=== PATIENT | male | born 1990 ===

== ENCOUNTER 2016-07-16 08:50 | Emergency (ER) | payer MEDICAID ==
[2016-07-16 08:53] VITALS: BP 134/90; TEMP 98.3; O2SAT 98
--- NOTE | 2016-07-16 10:24 | ED PDOC ---
HPI: General Adult Time Seen by Provider: 07/16/16 09:00 Chief Complaint (Nursing): Medical Clearance Chief Complaint (Provider): Medical Clearance History Per: Patient History/Exam Limitations: no limitations Onset/Duration Of Symptoms: Days Current Symptoms Are (Timing): Still Present Severity: Mild Additional Complaint(s): Patient is a 26 year old male brought to ED by [place] Police (under custody) for diffuse body pain. Patient reports a several day history of body pain with fever. Denies injury. no vomiting diarrhea Past Medical History Reviewed: Historical Data Vital Signs: Last Vital Signs Temp 98.3 F 07/16/16 08:52 Pulse 60 07/16/16 11:42 Resp BP 134/90 07/16/16 08:52 Pulse Ox 98 07/16/16 11:42 - Medical History PMH: Personality Disorder - Surgical History Surgical History: No Surg Hx - Family History Family History: States: No Known Family Hx - Living Arrangements Living Arrangements: Other (non domiciled) - Social History Current smoker - smoking cessation education provided: Yes Alcohol: < 2 Drinks/Day Drugs: Opiates - Home Medications Home Medications: Ambulatory Orders Medication Instructions Recorded DiphenhydrAMINE [Benadryl] 50 mg PO Q6 PRN #30 cap 04/08/16 Epinephrine HCl [Epipen 0.3 mg IM ONCE PRN #0.3 ml 04/08/16 Auto-Injector] Famotidine [Pepcid] 40 mg PO DAILY #7 tab 04/08/16 Prednisone 50 mg PO DAILY #2 tablet 04/08/16 - Allergies Allergies/Adverse Reactions: Allergies Allergy/AdvReac Type Severity Reaction Status Date / Time nut - unspecified Allergy ANAPHYLAXIS Verified 04/08/16 15:43 Review of Systems ROS Statement: Except As Marked, All Systems Reviewed And Found Negative Constitutional: Positive for: Fever, Chills Cardiovascular: Negative for: Chest Pain Respiratory: Negative for: Shortness of Breath Gastrointestinal: Negative for: Nausea, Abdominal Pain Musculoskeletal: Positive for: Other (diffuse bady pain ) Skin: Negative for: Rash Physical Exam - Reviewed Nursing Documentation Reviewed: Yes Vital Signs Reviewed: Yes - Physical Exam Appears: Positive for: Non-toxic, No Acute Distress Skin: Positive for: Normal Color, Warm Eye Exam: Positive for: Normal appearance Neck: Positive for: Normal, Painless ROM Cardiovascular/Chest: Positive for: Regular Rate, Rhythm. Negative for: Murmur Respiratory: Positive for: Normal Breath Sounds. Negative for: Respiratory Distress Gastrointestinal/Abdominal: Positive for: Normal Exam. Negative for: Tenderness Extremity: Positive for: Normal ROM Neurologic/Psych: Positive for: Alert, Oriented - ECG ECG: Positive for: Interpreted By Me ECG Rhythm: Positive for: Normal QRS, Sinus Rhythm. Negative for: ST/T Changes Rate: 60 O2 Sat by Pulse Oximetry: 98 (RA) Pulse Ox Interpretation: Normal Medical Decision Making Medical Decision Making: Time: 944 Initial impression: Medical clearance Initial plan: -- Influenza -- Troponin tylenol given for pain with imrpovement Time: 1139 Troponin negative, influenza negative pt seen by home mission worker Dr. Mcwilliams cleared psychiatrically. Discharged into police custody with diagnosis body aches Scribe Attestation: Documented by Neli Rivero acting as a scribe for Junior Peterson MD. Scribe Attestation: All medical record entries made by the Scribe were at my direction and personally dictated by me. I have reviewed the chart and agree that the record accurately reflects my personal performance of the history, physical exam, medical decision making, and the department course for this patient. I have also personally directed, reviewed, and agree with the discharge instructions and disposition. Disposition - Clinical Impression Clinical Impression: Body aches - Patient ED Disposition Is Patient to be Admitted: No Counseled Patient/Family Regarding: Studies Performed, Diagnosis, Need For Followup - Disposition Referrals: [facility] [Outside] [facility] [Outside] Disposition: Routine/Home Disposition Time: 11:00 Condition: IMPROVED Additional Instructions: you are medically and psychiatrically cleared for police custody follow up with your primary doctor in 1-2 days return to the ED with any worsening or concerning symptoms Instructions: Musculoskeletal Pain (ED)
[2016-07-16 11:42] VITALS: PULSE 60
== END 2016-07-16 11:59 | disposition home or self-care (01) ==
LOC: H.ER 08:50
DX: M79.1 Myalgia (principal); F17.200 Nicotine dependence, unspecified, uncomplicated

== ENCOUNTER 2017-03-05 21:21 | Emergency (ER) | payer SELFPAY ==
[2017-03-05 21:36] VITALS: BMI 22.3
[2017-03-05] MEDS ORDERED: Sodium Chloride 0.9% 1,000 ML IV STA (21:43)
[2017-03-05 21:48] VITALS: TEMP 98.3
--- NOTE | 2017-03-05 22:23 | ED PDOC ---
HPI: Psych/Substance Abuse Time Seen by Provider: 03/05/17 21:30 Chief Complaint (Nursing): Substance Abuse Chief Complaint (Provider): Heroin overdose ED Caveat: Acuity of Condition History Per: Patient, EMS History/Exam Limitations: no limitations Onset/Duration Of Symptoms: Mins Additional Complaint(s): Patient is a 27 y/o male brought to the emergency department by a friend who reports that patient is unresponsive after heroin use. Patient was also found with a needle in his arm. Upon arrival to the ED, patient was noted to have severe respiratory depression bordering on apnea. Pupils were pinpoint-- consistent with acute opiate overdose. History and ROS limited due to patient's clinical condition. Please see MDM notes for treatment steps taken. PCP: none provided. Past Medical History Reviewed: Historical Data, Nursing Documentation, Vital Signs Vital Signs: Last Vital Signs Temp 98.3 F 03/05/17 21:36 Pulse 120 H 03/05/17 21:36 Resp 18 03/05/17 21:36 BP 135/81 03/05/17 21:36 Pulse Ox 99 03/05/17 21:36 - Medical History PMH: Personality Disorder Denies: Diabetes, Hepatitis, HIV, HTN, Seizures, Sexually Transmitted Disease - Surgical History Surgical History: No Surg Hx - Family History Family History: States: Unknown Family Hx - Social History Drugs: Opiates - Home Medications Home Medications: Ambulatory Orders Medication Instructions Recorded DiphenhydrAMINE [Benadryl] 50 mg PO Q6 PRN #30 cap 04/08/16 Epinephrine HCl [Epipen 0.3 mg IM ONCE PRN #0.3 ml 04/08/16 Auto-Injector] Famotidine [Pepcid] 40 mg PO DAILY #7 tab 04/08/16 Prednisone 50 mg PO DAILY #2 tablet 04/08/16 - Allergies Allergies/Adverse Reactions: Allergies Allergy/AdvReac Type Severity Reaction Status Date / Time nut - unspecified Allergy ANAPHYLAXIS Verified 03/05/17 21:36 Review of Systems Review Of Systems: ROS cannot be obtained secondary to pt's inabilty to answer questions. (due to patient's clinical condition) Physical Exam - Reviewed Nursing Documentation Reviewed: Yes Vital Signs Reviewed: Yes - Physical Exam Appears: Positive for: Non-toxic, No Acute Distress Head Exam: Positive for: ATRAUMATIC, NORMAL INSPECTION, NORMOCEPHALIC Skin: Positive for: Normal Color, Warm, Dry Eye Exam: Positive for: Normal appearance (intially, pinpoint pupils noted) Neck: Positive for: Normal, Supple Cardiovascular/Chest: Positive for: Regular Rate, Rhythm. Negative for: Murmur Respiratory: Positive for: Normal Breath Sounds (initially, only during positive pressure ventilation via BVM). Negative for: Accessory Muscle Use, Respiratory Distress Extremity: Positive for: Normal ROM, Other (Active track cruz on left antecubital region). Negative for: Pedal Edema Neurologic/Psych: Positive for: Alert, Oriented (x3) - Laboratory Results Result Diagrams: 03/05/17 22:11 03/05/17 22:11 - ECG O2 Sat by Pulse Oximetry: 99 (RA) Pulse Ox Interpretation: Normal - Critical Care Total Time (In Min): 30 Medical Decision Making Medical Decision Making: Time: 21:43 Initial impression: Patient is 27 y/o male presenting with signs of an acute opiate overdose. Initial plan: EKG Acetaminophen Alcohol serum CMP Urine Drug Screening Salicylate ED Urine Dipstick CBC Normal Saline 1 L IV Heplock insertion Accucheck Reevaluation 21:24 ED treatment initiated. Patient put on stretcher. Pinpoint pupils noted. 21:25 Positive pressure ventilation via BVM initiated. 21:26 0.8 Narcan administered. Patient is responsive. 21:27 Accucheck reading is 140. Patient is now lucid and alert. Admits to heroin use and denies use of other substances. Vital signs are stable. 02:10 Labs reviewed and revealed no clinically significant abnormalities, with exception of 19,000 WBC count. No indication of active infections process. Patient is a-febrile without cough or any other medical complaints. Medical pain related to stress induced leukemoid reaction. Diagnosis: Heroin Overdose Scribe Attestation: Documented by Kimberli Cook, acting as a scribe for Jamal Reyes MD. Provider Scribe Attestation: All medical record entries made by the Scribe were at my direction and personally dictated by me. I have reviewed the chart and agree that the record accurately reflects my personal performance of the history, physical exam, medical decision making, and the department course for this patient. I have also personally directed, reviewed, and agree with the discharge instructions and disposition. Disposition - Clinical Impression Clinical Impression: Heroin overdose - Patient ED Disposition Is Patient to be Admitted: No - Disposition Disposition: Routine/Home Disposition Time: 02:10 Condition: IMPROVED Instructions: Narcotic Abuse (ED), Adult Overdose (ED) Forms: [employer] (Nicaraguan)
[2017-03-05 22:27] LABS: BASO # 0.1 K/uL (0.0-0.2); BASO % 0.4 % (0.0-2.0); EOS # 0.3 K/uL (0.0-0.7); EOS % 1.6 % (0.0-4.0); HEMOGLOBIN 15.1 g/dL (12.0-18.0); LYMPH # 7.4 K/uL (1.0-4.3); LYMPH % 38.4 % (20.0-40.0); MEAN CELL VOLUME 89.1 fl (80.0-94.0); MEAN CORPUSCULAR HEMOGLOBIN 29.8 pg (27.0-31.0); MEAN CORPUSCULAR HGB CONC 33.4 g/dL (33.0-37.0); MEAN PLATELET VOLUME 8.8 fl (7.2-11.7); MONO # 1.3 K/uL (0.0-0.8); MONO % 6.6 % (0.0-10.0); NEUT # 10.2 K/uL (1.8-7.0); NRBC % 0.2 % (0.0-0.0); RBC 5.09 Mil/uL (4.40-5.90); RED CELL DISTRIBUTION WIDTH 13.8 % (11.5-14.5); WHITE BLOOD COUNT 19.3 K/uL (4.8-10.8)
[2017-03-05 22:29] LABS: ALB/GLOB RATIO 1.4 (1.0-2.1); ALBUMIN 4.4 g/dL (3.5-5.0); ALT/SGPT 37 U/L (21-72); AST/SGOT 31 U/L (17-59); BLOOD UREA NITROGEN 11 mg/dl (9-20); CALCIUM 9.4 mg/dL (8.4-10.2); GFR AFRICAN-AMERICAN > 60; GFR NON-AFRICAN AMERICAN > 60
[2017-03-05 22:31] LABS: ACETAMINOPHEN < 10.0 ug/ml (10.0-30.0); SALICYLATE < 1.0 mg/dl
[2017-03-05 22:50] VITALS: RESP 16
[2017-03-05] MEDS ORDERED: Naloxone 0.4 mg/ml Inj (Adult) IVP ONE (22:56)
[2017-03-06 02:18] VITALS: O2SAT 99
[2017-03-06 03:58] VITALS: BP 102/62; PULSE 95
--- NOTE | 2017-03-06 11:05 | CARD ---
APPROVED REPORT EKG Measurement Heart [id number] <Conclusion> Sinus tachycardia Possible Left atrial enlargement Borderline ECG
== END 2017-03-06 03:58 | disposition home or self-care (01) ==
LOC: H.ER 21:21
DX: T40.1X1A Poisoning by heroin, accidental (unintentional), initial encounter (principal); D72.823 Leukemoid reaction
CPT/HCPCS: 80053; 85025; 93005; 96361; 96374; 99283; G0480; J2310; J7040

== ENCOUNTER 2017-04-04 14:32 | Emergency (ER) | payer MEDICAID ==
[2017-04-04 15:07] VITALS: BP 120/87; RESP 16; TEMP 98; O2SAT 99; BMI 22.6
--- NOTE | 2017-04-04 15:59 | ED PDOC ---
HPI: General Adult Time Seen by Provider: 04/04/17 15:13 Chief Complaint (Nursing): Headache Chief Complaint (Provider): Numbness to the head region History Per: Patient History/Exam Limitations: no limitations Current Symptoms Are (Timing): Still Present Additional Complaint(s): 27 year old male presents to the emergency department with a complaint of a numbness to the left side of the head that started after he woke up around 9am from sleeping this morning. Reports he had similar symptoms over the summer which lasted approximately 2 weeks and resolved spontaneously. He did not seek any medical attention at that time. Denies peripheral weakness, headache contrary to triage note, fever, or trauma. Past Medical History Reviewed: Historical Data, Nursing Documentation, Vital Signs Vital Signs: Last Vital Signs Temp 98.0 F 04/04/17 15:06 Pulse 65 04/04/17 17:21 Resp 16 04/04/17 15:06 BP 120/87 04/04/17 15:06 Pulse Ox 99 04/04/17 17:21 - Medical History PMH: Personality Disorder Denies: Diabetes, Hepatitis, HIV, HTN, Seizures, Sexually Transmitted Disease - Family History Family History: States: Unknown Family Hx - Social History Current smoker - smoking cessation education provided: Yes (Heavy Smoker > 10 Cigarettes Daily) Alcohol: Social Drugs: Other (Heroin) - Home Medications Home Medications: Ambulatory Orders Medication Instructions Recorded DiphenhydrAMINE [Benadryl] 50 mg PO Q6 PRN #30 cap 04/08/16 Epinephrine HCl [Epipen 0.3 mg IM ONCE PRN #0.3 ml 04/08/16 Auto-Injector] Famotidine [Pepcid] 40 mg PO DAILY #7 tab 04/08/16 Prednisone 50 mg PO DAILY #2 tablet 04/08/16 - Allergies Allergies/Adverse Reactions: Allergies Allergy/AdvReac Type Severity Reaction Status Date / Time nut - unspecified Allergy ANAPHYLAXIS Verified 04/04/17 15:05 Review of Systems ROS Statement: Except As Marked, All Systems Reviewed And Found Negative (As per HPI, otherwise negative) Constitutional: Negative for: Fever, Other (Trauma) Neurological: Positive for: Numbness (To the left side of the head). Negative for: Weakness (peripheral weakness), Headache (Contrary to triage note) Physical Exam - Reviewed Nursing Documentation Reviewed: Yes Vital Signs Reviewed: Yes - Physical Exam Appears: Positive for: No Acute Distress Head Exam: Positive for: ATRAUMATIC, NORMAL INSPECTION, NORMOCEPHALIC Skin: Positive for: Normal Color, Warm, Dry Cardiovascular/Chest: Positive for: Regular Rate, Rhythm. Negative for: Murmur Respiratory: Positive for: Normal Breath Sounds. Negative for: Accessory Muscle Use, Respiratory Distress Gastrointestinal/Abdominal: Positive for: Normal Exam, Soft. Negative for: Tenderness Back: Positive for: Normal Inspection. Negative for: L CVA Tenderness, R CVA Tenderness Extremity: Positive for: Normal ROM. Negative for: Tenderness, Pedal Edema Neurologic/Psych: Positive for: Alert, deputy k 9 II-XII (Intact), Oriented (x3), Cerebellar Tests (Normal), Gait (Stead and unassisted), Other (Equal log roper strength bilaterally). Negative for: Facial Droop (aphasia) - Laboratory Results Result Diagrams: 04/04/17 15:57 04/04/17 15:57 - ECG ECG: Positive for: Interpreted By Ma ECG Rhythm: Positive for: Sinus Rhythm. Negative for: ST/T Changes Rate: 65 O2 Sat by Pulse Oximetry: 99 (RA) Pulse Ox Interpretation: Normal - Progress ED Course And Treament: Case d/w Dr. Armstrong who recommends labs and CT head w/o contrast and if all are negative pt. can f/u with neurologist outpt. Labs ordered. CT head w/o contrast ordered. CT head w/o contrast: negative. Pt. instructed to f/u with Dr. Lemus, neurologist, for further evaluation. Medical Decision Making Medical Decision Making: Time: 153 Initial impression: Numbness Initial plan: --EKG --CMP --Drug Screen, Urine --CBC w/ diff --Head CT --Reevaluation Time: 163 --head CT FINDINGS: HEMORRHAGE: No intracranial hemorrhage. BRAIN: No mass effect or edema. No atrophy or chronic microvascular ischemic changes. VENTRICLES: Unremarkable. No hydrocephalus. CALVARIUM: Unremarkable. PARANASAL SINUSES: Unremarkable as visualized. No significant inflammatory changes. MASTOID AIR CELLS: Unremarkable as visualized. No inflammatory changes. OTHER FINDINGS: None. IMPRESSION: No acute intracranial pathology. Time: 1716 --Patient is medically stable for discharge and advised to follow up with Dr. Minh Lemus MD. Clinical Impression: Paresthesias Scribe Attestation: Documented by Kristie Dager, acting as a scribe for Zenon Brewster PA-C Provider Scribe Attestation: All medical record entries made by the Scribe were at my direction and personally dictated by me. I have reviewed the chart and agree that the record accurately reflects my personal performance of the history, physical exam, medical decision making, and the department course for this patient. I have also personally directed, reviewed, and agree with the discharge instructions and disposition. Disposition - Clinical Impression Clinical Impression: Paresthesias - Patient ED Disposition Is Patient to be Admitted: No - Disposition Referrals: Minh Lemus MD [Medical Doctor] - [facility] [Outside] [facility] [Outside] Disposition: Routine/Home Disposition Time: 17:17 Condition: STABLE Additional Instructions: Follow up with Dr. Lemus, neurologist, for further evaluation. Instructions: Paresthesia (ED) Forms: [facility] (Mohawk) Print Language: KINYARWANDA
--- NOTE | 2017-04-04 16:40 | CT ---
PROCEDURE: CT HEAD WITHOUT CONTRAST. HISTORY: numbness to the L side of head COMPARISON: None available. TECHNIQUE: Axial computed tomography images were obtained through the head/brain without intravenous contrast. Radiation dose: Total exam DLP = 1332.2 mGy-cm. This CT exam was performed using one or more of the following dose reduction techniques: Automated exposure control, adjustment of the mA and/or kV according to patient size, and/or use of iterative reconstruction technique. FINDINGS: HEMORRHAGE: No intracranial hemorrhage. BRAIN: No mass effect or edema. No atrophy or chronic microvascular ischemic changes. VENTRICLES: Unremarkable. No hydrocephalus. CALVARIUM: Unremarkable. PARANASAL SINUSES: Unremarkable as visualized. No significant inflammatory changes. MASTOID AIR CELLS: Unremarkable as visualized. No inflammatory changes. OTHER FINDINGS: None. IMPRESSION: No acute intracranial pathology.
[2017-04-04 16:45] VITALS: PULSE 65
[2017-04-04 16:50] LABS: ALB/GLOB RATIO 1.4 (1.0-2.1); ALBUMIN 4.6 g/dL (3.5-5.0); ALT/SGPT 29 U/L (21-72); AST/SGOT 30 U/L (17-59); BLOOD UREA NITROGEN 14 mg/dl (9-20); GFR AFRICAN-AMERICAN > 60; GFR NON-AFRICAN AMERICAN > 60
[2017-04-04 17:00] LABS: BASO % 0.5 % (0.0-2.0); EOS # 0.3 K/uL (0.0-0.7); EOS % 4.9 % (0.0-4.0); HEMOGLOBIN 15.3 g/dL (12.0-18.0); LYMPH # 2.3 K/uL (1.0-4.3); LYMPH % 33.9 % (20.0-40.0); MEAN CELL VOLUME 88.3 fl (80.0-94.0); MEAN CORPUSCULAR HEMOGLOBIN 29.5 pg (27.0-31.0); MEAN CORPUSCULAR HGB CONC 33.4 g/dL (33.0-37.0); MEAN PLATELET VOLUME 9.1 fl (7.2-11.7); MONO # 0.6 K/uL (0.0-0.8); MONO % 9.2 % (0.0-10.0); NEUT # 3.6 K/uL (1.8-7.0); NEUT % 51.5 % (50.0-75.0); NRBC % 0.1 % (0.0-0.0); RBC 5.2 Mil/uL (4.40-5.90); WHITE BLOOD COUNT 6.9 K/uL (4.8-10.8)
--- NOTE | 2017-04-05 11:20 | CARD ---
APPROVED REPORT EKG Measurement Heart [id number] <Conclusion> Normal sinus rhythm Possible Left atrial enlargement Borderline ECG
== END 2017-04-04 17:39 | disposition home or self-care (01) ==
LOC: H.ER 14:32
DX: R20.2 Paresthesia of skin (principal)

== ENCOUNTER 2017-05-15 15:26 | Inpatient (IN) | payer MEDICAID, OTHER ==
[2017-05-15 15:26] VITALS: BMI 22.6
[2017-05-15 15:58] VITALS: O2SAT 96
[2017-05-15 17:07] LABS: BASO # 0.1 K/uL (0.0-0.2); BASO % 0.7 % (0.0-2.0); EOS # 0.2 K/uL (0.0-0.7); EOS % 2.5 % (0.0-4.0); HEMOGLOBIN 14.1 g/dL (12.0-18.0); LYMPH # 2.2 K/uL (1.0-4.3); MEAN CELL VOLUME 88.1 fl (80.0-94.0); MEAN CORPUSCULAR HEMOGLOBIN 30.1 pg (27.0-31.0); MEAN CORPUSCULAR HGB CONC 34.2 g/dL (33.0-37.0); MEAN PLATELET VOLUME 8.4 fl (7.2-11.7); MONO # 0.5 K/uL (0.0-0.8); MONO % 6.5 % (0.0-10.0); NEUT # 5.2 K/uL (1.8-7.0); NEUT % 63.3 % (50.0-75.0); RBC 4.68 Mil/uL (4.40-5.90); RED CELL DISTRIBUTION WIDTH 12.7 % (11.5-14.5); WHITE BLOOD COUNT 8.2 K/uL (4.8-10.8)
[2017-05-15 17:10] LABS: URINE BACTERIA RARE (<OCC); URINE BILIRUBIN NEGATIVE (NEGATIVE); URINE BLOOD NEGATIVE (NEGATIVE); URINE CLARITY SLIGHTY-CLOUDY (Clear); URINE COLOR YELLOW (YELLOW); URINE GLUCOSE (UA) NEG (Normal); URINE LEUKOCYTE ESTERASE NEG Leu/uL (Negative); URINE PROTEIN 30 mg/dL (NEGATIVE); URINE UROBILINOGEN 0.2-1.0 mg/dL (0.2-1.0)
[2017-05-15 17:11] LABS: SQUAMOUS EPITHIAL 1 /hpf (0-5)
[2017-05-15 17:16] LABS: ALB/GLOB RATIO 1.3 (1.0-2.1); ALBUMIN 4.3 g/dL (3.5-5.0); ALT/SGPT 34 U/L (21-72); AST/SGOT 23 U/L (17-59); BLOOD UREA NITROGEN 19 mg/dl (9-20); CALCIUM 9.9 mg/dL (8.4-10.2); GFR AFRICAN-AMERICAN > 60; GFR NON-AFRICAN AMERICAN > 60
[2017-05-15 17:23] LABS: BARBITURATES, UR NEGATIVE (NEGATIVE); BENZODIAZEPINES, UR NEGATIVE (NEGATIVE); OPIATES, UR POSITIVE (NEGATIVE); PHENCYCLIDINE, UR NEGATIVE (NEGATIVE)
--- NOTE | 2017-05-15 18:48 | ED PDOC ---
HPI: Psych/Substance Abuse Time Seen by Provider: 05/15/17 16:16 Chief Complaint (Nursing): Psychiatric Evaluation Chief Complaint (Provider): Psychiatric Evaluation History Per: Patient History/Exam Limitations: no limitations Onset/Duration Of Symptoms: Days (x 1 week ) Current Symptoms Are (Timing): Still Present Additional Complaint(s): 27 year old male with a history of long time depression, presents to the ED for psychiatric evaluation. Patient states for the last week he has had suicidal ideation and has been cutting himself on his left forearm. He does not taken anti-depressants. Other psychiatric symptoms: (-) hallucinations, (-) homicidal ideation. Otherwise: (-) trauma, (-) fever, (-) headache, (-) dyspnea , (-) vomiting. PMD: none provided Past Medical History Reviewed: Historical Data, Nursing Documentation, Vital Signs Vital Signs: Last Vital Signs Temp 97.8 F 05/15/17 15:55 Pulse 69 05/15/17 15:55 Resp 18 05/15/17 15:55 BP 118/72 05/15/17 15:55 Pulse Ox 96 05/15/17 15:55 - Medical History PMH: Depression, Personality Disorder Denies: Diabetes, Hepatitis, HIV, HTN, Seizures, Sexually Transmitted Disease - Surgical History Surgical History: No Surg Hx - Family History Family History: States: Unknown Family Hx - Home Medications Home Medications: Ambulatory Orders Medication Instructions Recorded DiphenhydrAMINE [Benadryl] 50 mg PO Q6 PRN #30 cap 04/08/16 Epinephrine HCl [Epipen 0.3 mg IM ONCE PRN #0.3 ml 04/08/16 Auto-Injector] Famotidine [Pepcid] 40 mg PO DAILY #7 tab 04/08/16 Prednisone 50 mg PO DAILY #2 tablet 04/08/16 - Allergies Allergies/Adverse Reactions: Allergies Allergy/AdvReac Type Severity Reaction Status Date / Time nut - unspecified Allergy ANAPHYLAXIS Verified 05/15/17 15:53 Review of Systems ROS Statement: Except As Marked, All Systems Reviewed And Found Negative Psych: Positive for: Depression, Suicidal ideation. Negative for: Other ( homicidal ideation) Physical Exam - Reviewed Nursing Documentation Reviewed: Yes Vital Signs Reviewed: Yes - Physical Exam Comments: GENERAL APPEARANCE: Patient is awake, alert, oriented x 3, in no acute distress. SKIN: Warm, dry; (-) cyanosis, (+) multiple healing, superficial lacerations of left forearm. HEAD: (-) scalp swelling, (-) scalp tenderness. EYES: (-) conjunctival pallor, (-) scleral icterus, (-) nystagmus. ENMT: Mucous membranes moist. Airway patent: (-) stridor. NECK: (-) tenderness, (-) stiffness, (-) lymphadenopathy. CHEST AND RESPIRATORY: (-) rales, (-) rhonchi, (-) wheezes; breath sounds equal. ABDOMEN: Soft, (-) distention, (-) tenderness, (-) guarding. NEURO AND PSYCH: Mental status as above. Affect: Flat. explosive ordnance manager: Intact. Pupils equal and reactive; EOMI; (-) facial asymmetry ; tongue and uvula midline. Strength and DTRs symmetric. - Laboratory Results Result Diagrams: 05/15/17 16:40 05/15/17 16:40 - ECG O2 Sat by Pulse Oximetry: 96 (RA) Pulse Ox Interpretation: Normal Medical Decision Making Medical Decision Making: Time: 16:16 Impression: suicidal ideation Initial Plan: --Alcohol serum --CMP --urine drug --CBC with differentials --1:1 observation for suicide prevention --Urinalysis Labs were reviewed and are all in normal limits. UDS is positive for opiates, cannabinoids and cocaine. Patient is medically cleared for crisis Patient was seen and evaluated by crisis. After evaluation by crisis, decision made for inpatient treatment which patient is also requesting. He will be admitted for diagnosis of depression and opiate abuse as per Carlos. ---- Scribe Attestation: Documented by Jammie Barger, acting as a scribe for Khushboo Donaldson PA-C Provider Scribe Attestation: All medical record entries made by the Scribe were at my direction and personally dictated by me. I have reviewed the chart and agree that the record accurately reflects my personal performance of the history, physical exam, medical decision making, and the department course for this patient. I have also personally directed, reviewed, and agree with the discharge instructions and disposition. Disposition - Clinical Impression Clinical Impression: Depression, Opiate abuse, continuous - Patient ED Disposition Is Patient to be Admitted: Yes Counseled Patient/Family Regarding: Studies Performed, Diagnosis - Disposition Disposition Time: 18:22 Condition: STABLE - PA / GUEST HISTORY CLERK / Resident Statement MD/DO has reviewed & agrees with the documentation as recorded.
[2017-05-15] MEDS ORDERED: DiphenhydrAMINE 50 mg/ml Inj IM PRN (21:02)
[2017-05-15] MEDS ORDERED: Magnesium Hydroxide Susp 30 ml UD PO PRN (21:02)
[2017-05-15] MEDS ORDERED: Alum-Mag Hydrox-Simethicone Susp (30 mL) PO PRN (21:02)
--- NOTE | 2017-05-15 21:33 | PCM.BM ---
<Chau Davis P - Last Filed: 05/15/17 21:32> Treatment Plan Problems - Problems identified on initial assessmt Hopelessness/helplessness Date Initiated: 05/15/17 Time Initiated: 21:32 Assessment reference: NA Status: Active Altered Sleep Pattern Date Initiated: 05/15/17 Time Initiated: 21:32 Assessment reference: NA Status: Active Treatment assets and liabiliti Patient Assests: physically healthy, negotiates basic needs, cognitively intact Patient Liabilities: live alone, financial problems, poor support system, relationship conflicts, substance abuse - Milieu Protocol Maintain good personal hygiene: daily Encourage regular showers, daily Remind patient to perform daily oral care, daily Assist patient to perform ADL's Conduct patient checks and document Observation sheet: Q15 minutes Maintain personal safety: every shift Educate patient to report safety concerns to staff, every shift Monitor environment for contraband/sharps Medication safety: Monitor for expected outcome, potential side effects: every shift, Assess barriers to learning: every shift, Assess readiness for medication education: every shift <Cuate Engle J - Last Filed: 05/17/17 13:09> Family Contact Family involvement: Family/SO is involved Family contact: Patient declines to allow family contact at present Family contact name: Pt does not want anyone to know he is here at this time. - Goals for Treatment Patient goals for treatment: Pt would like to be referred to residential rehab. Pt appears motivated to stop using drugs. Discharge/Continuing Care - Education Needs Education Needs: Patient Medication, Patient Diagnosis/Disease Process, Patient Coping Skills, Patient Community resources, Patient Personal Hygiene/Grooming, Patient Aftercare Safety Plan - Discharge Discharge Criteria: Tolerates medication w/o severe side effects, Free of Suicidal thoughts, Free of agitation, Normal sleep pattern, No longer exhibiting s/s of withdrawal, Reduction of target symptoms Discharge to:: Home, With Family - Treatment Team Participation Discussed with Family/SO: No <Eileen Ramesh - Last Filed: 05/18/17 14:58> Discharge/Continuing Care - Treatment Team Participation Patient/Family/SO Statement: 05/18/17 14:58 Patient attended tx team this morning to discuss progress on 3NP and discharge planning. Pt. presents as depressed and anxious as but to a lesser degree than upon admission. Pt. continues to report sxs of withdrawal and significant sleep disturbances resulting in poor frustration tolerance and irritability. Pt. reported self-injurious behaviors on days leading to admission in context of ongoing drug abuse and recent break-up. Pt. explained that he signed a 48 hour notice due to being scheduled for a court appearance on 05/18 for drug related charges. Pt. continues to express interest in being referred to inpatient substance abuse services. Instructional Services Librarian explained that in the event that patient is stabilized prior to rehab bed being made available, patient will be discharged with outpatient mental health/substance abuse services and will have to follow- up with rehab referrals independently. Patient expressed understanding of the above and is agreeable. Pt. agreeable to OPS with [facility] until a bed can be obtained. Pt provided underwriter with consent to call court and notify appropriate staff of hospitalization and agreed to rescind 48 hr notice. Was Patient/Family/SO present at Treatment Team Meeting: Yes <Yordan Cross - Last Filed: 05/19/17 10:04> - Diagnosis (1) Depression Status: Acute Interventions: psychotherapy pharmacotherapy 05/19/17 10:03
--- NOTE | 2017-05-16 08:40 | PCM.PSYCH ---
Initial Psychiatric Evaluation - Initial Psychiatric Evaluation Type of Admission: Voluntary Chief Complaint (in patient's own words): i dont know Patient's Reaction to Hospitalization: pt is upset History of Present Illness and Precipitating Events: This is a 27 yr old male with h/o heroin and cocaine abuse admitted because pt has been very depressed and cutting himself and having suicidal thoughts and plan to kill himself.pt is currently not in treatment and lives with son's mother. Current Medications: Active Medications Generic Name Dose Route Start Last Admin Trade Name Freq PRN Reason Stop Dose Admin Acetaminophen 650 mg 05/15/17 21:02 Tylenol 325mg Tab PO Q4 PRN pain level 4-7 Al Hydrox/Mg Hydrox/Simethicone 30 ml 05/15/17 21:02 Maalox Plus 30 Ml PO Q4 PRN Dyspepsia Clonidine HCl 0.1 mg 05/16/17 01:00 05/16/17 01:14 Catapres PO 05/19/17 01:01 Not Given Q8 TESHA Diphenhydramine HCl 50 mg 05/15/17 21:02 Benadryl IM Q6 PRN Extrapyramidal S/S Unable PO Diphenhydramine HCl 50 mg 05/15/17 21:02 05/16/17 01:00 Benadryl PO 50 mg Q6 PRN Administration Extrapyramidal Symptoms Diphenhydramine HCl 50 mg 05/15/17 21:04 Benadryl PO HS PRN Sleep Haloperidol 5 mg 05/15/17 21:02 05/16/17 01:00 Haldol PO 5 mg Q4 PRN Administration Agitation Haloperidol Lactate 5 mg 05/15/17 21:02 Haldol IM Q4 PRN Agitation, Unable to Take PO Ibuprofen 800 mg 05/15/17 21:12 Motrin Tab PO 05/18/17 21:13 Q6 PRN Pain, moderate (4-7) Loperamide HCl 2 mg 05/15/17 21:12 Imodium PO Q4 PRN After Loose Bowel Movement Lorazepam 2 mg 05/15/17 21:02 Ativan IM Q4 PRN Anxiety/Agitation,Unable PO Lorazepam 2 mg 05/15/17 21:02 05/16/17 01:00 Ativan PO 2 mg Q4 PRN Administration Anxiety/Agitation Magnesium Hydroxide 30 ml 05/15/17 21:02 Milk Of Magnesia PO HS PRN Constipation Multivitamins/Minerals 1 tab 05/16/17 09:00 Therapeutic-M Tab PO DAILY TESHA Past Psychiatric History - Past Psychiatric History Prior Professional Help: pt was in outpt History of Abuse: denies History of ETOH/Drug Use: pt abusing opiates and allcohol History of Family Illness: denies Pertinent Medical Hx (Current Medical&Sleep Prob, Allergies): Allergies Allergy/AdvReac Type Severity Reaction Status Date / Time avocado Allergy RASH Verified 05/15/17 21:37 banana Allergy RASH Verified 05/15/17 21:37 FISH Allergy RASH Verified 05/15/17 21:36 nut - unspecified Allergy ANAPHYLAXIS Verified 05/15/17 15:53 DiphenhydrAMINE [Benadryl] 50 mg PO Q6 PRN #30 cap 04/08/16 Epinephrine HCl [Epipen Auto-Injector] 0.3 mg IM ONCE PRN #0.3 ml 04/08/16 Famotidine [Pepcid] 40 mg PO DAILY #7 tab 04/08/16 Prednisone 50 mg PO DAILY #2 tablet 04/08/16 not known Review of Systems - Review of Systems All systems: reviewed and no additional remarkable complaints except Mental Status Examination - Personal Presentation Personal Presentation: Looks stated age - Affect Affect: Constricted - Motor Activity Motor Activity: Other - Reliability in Providing Information Reliability in Providing Information: Poor, due to alteration in thoughts - Speech Speech: Tangential - Mood Mood: Depressed, Anxious - Formal Thought Process Formal Thought Process: Paranoia - Obsessions/Compulsions Obsessions: No Compulsions: No - Cognitive Functions Orientation: Place, Situation, Time Sensorium: Alert Attention/Concentration: Easily distracted Abstract Thinking: As evidence by abstract perception of proverbs Judgement: Imparied, as evidence by: Poor judgement, Imparied, as evidence by: Lack of insight into illness Memory: Recent intact, as evidence by: Ability to recall events of the day, Remote intact, as evidenced by: Ability to recall historical events - Risk Risk: Diminished functioning - Strength & Assets Inventory Strength & Assets Inventory: Family support DSM 5 DX - DSM 5 DSM 5 Diagnosis: depressive disorder not specified cocaine abuse heroin abuse and dependence - Recommended/Plan of Treatment Treatment Recommendations and Plan of Treatment: Will start lt on opiate protocol for detox will start pt in neurontin 100 mg tid and zooLoft 25 mg daily for depression. medical consult
--- NOTE | 2017-05-16 12:03 | CP.PCM.CON ---
History of Present Illness - History of Present Illness History of Present Illness: Pt agitated, refused to be seen. Past Patient History - Infectious Disease Hx of Infectious Diseases: None - Past Social History Smoking Status: Heavy Smoker > 10 Cigarettes Daily - CARDIAC Hx Cardiac Disorders: No - PULMONARY Hx Tuberculosis: No - NEUROLOGICAL Hx Seizures: No - HEMATOLOGICAL/ONCOLOGICAL Hx Human Immunodeficiency Virus (HIV): No - GENITOURINARY/GYNECOLOGICAL Hx Sexually Transmitted Disorders: No - PSYCHIATRIC Hx Bipolar Disorder: Yes Hx Substance Use: Yes (cocaine,heroin,MJ) - SURGICAL HISTORY Hx Surgeries: No - ANESTHESIA Hx Anesthesia: No Meds Allergies/Adverse Reactions: Allergies Allergy/AdvReac Type Severity Reaction Status Date / Time avocado Allergy RASH Verified 05/15/17 21:37 banana Allergy RASH Verified 05/15/17 21:37 FISH Allergy RASH Verified 05/15/17 21:36 nut - unspecified Allergy ANAPHYLAXIS Verified 05/15/17 15:53 - Medications Medications: Current Medications Acetaminophen (Tylenol 325mg Tab) 650 mg PO Q4 PRN PRN Reason: pain level 4-7 Al Hydrox/Mg Hydrox/Simethicone (Maalox Plus 30 Ml) 30 ml PO Q4 PRN PRN Reason: Dyspepsia Clonidine HCl (Catapres) 0.1 mg PO Q8 TESHA Stop: 05/19/17 01:01 Last Admin: 05/16/17 01:14 Dose: Not Given Diphenhydramine HCl (Benadryl) 50 mg IM Q6 PRN PRN Reason: Extrapyramidal S/S Unable PO Diphenhydramine HCl (Benadryl) 50 mg PO Q6 PRN PRN Reason: Extrapyramidal Symptoms Last Admin: 05/16/17 01:00 Dose: 50 mg Diphenhydramine HCl (Benadryl) 50 mg PO HS PRN PRN Reason: Sleep Haloperidol (Haldol) 5 mg PO Q4 PRN PRN Reason: Agitation Last Admin: 05/16/17 01:00 Dose: 5 mg Haloperidol Lactate (Haldol) 5 mg IM Q4 PRN PRN Reason: Agitation, Unable to Take PO Ibuprofen (Motrin Tab) 800 mg PO Q6 PRN PRN Reason: Pain, moderate (4-7) Stop: 05/18/17 21:13 Loperamide HCl (Imodium) 2 mg PO Q4 PRN PRN Reason: After Loose Bowel Movement Lorazepam (Ativan) 2 mg IM Q4 PRN PRN Reason: Anxiety/Agitation,Unable PO Lorazepam (Ativan) 2 mg PO Q4 PRN PRN Reason: Anxiety/Agitation Last Admin: 05/16/17 01:00 Dose: 2 mg Magnesium Hydroxide (Milk Of Magnesia) 30 ml PO HS PRN PRN Reason: Constipation Multivitamins/Minerals (Therapeutic-M Tab) 1 tab PO DAILY TESHA Results - Vital Signs Recent Vital Signs: Last Vital Signs Temp 98.1 F 05/15/17 21:40 Pulse 82 05/16/17 01:14 Resp 18 05/15/17 21:40 BP 100/62 05/16/17 01:14 Pulse Ox 96 05/15/17 20:34 - Labs Result Diagrams: 05/15/17 16:40 05/15/17 16:40 Labs: Laboratory Results - last 24 hr 05/15/17 05/15/17 05/15/17 16:40 16:40 16:59 WBC 8.2 RBC 4.68 Hgb 14.1 Hct 41.2 MCV 88.1 MCH 30.1 MCHC 34.2 RDW 12.7 Plt Count 277 MPV 8.4 Neut % (Auto) 63.3 Lymph % (Auto) 27.0 Roberts % (Auto) 6.5 Eos % (Auto) 2.5 Baso % (Auto) 0.7 Neut # (Auto) 5.2 Lymph # (Auto) 2.2 Roberts # (Auto) 0.5 Eos # (Auto) 0.2 Baso # (Auto) 0.1 Sodium 142 Potassium 4.0 Chloride 99 Carbon Dioxide 28 Anion Gap 19 BUN 19 Creatinine 0.7 L Est GFR ( Amer) > 60 Est GFR (Non-Af Amer) > 60 Random Glucose 100 Calcium 9.9 Total Bilirubin 0.5 AST 23 ALT 34 Alkaline Phosphatase 64 Total Protein 7.6 Albumin 4.3 Globulin 3.3 Albumin/Globulin Ratio 1.3 Urine Color Urine Clarity Urine pH Ur Specific [place] Urine Protein Urine Glucose (UA) Urine Ketones Urine Blood Urine Nitrate Urine Bilirubin Urine Urobilinogen Ur Leukocyte Esterase Urine RBC (Auto) Urine Microscopic WBC Ur Squamous Epith Cells Urine Bacteria Urine Opiates Screen Positive H Urine Methadone Screen Negative Ur Barbiturates Screen Negative Ur Phencyclidine Scrn Negative Ur Amphetamines Screen Negative U Benzodiazepines Scrn Negative U Oth Cocaine Metabols Positive H U Cannabinoids Screen Positive H Alcohol, Quantitative < 10 05/15/17 16:59 WBC RBC Hgb Hct MCV MCH MCHC RDW Plt Count MPV Neut % (Auto) Lymph % (Auto) Roberts % (Auto) Eos % (Auto) Baso % (Auto) Neut # (Auto) Lymph # (Auto) Roberts # (Auto) Eos # (Auto) Baso # (Auto) Sodium Potassium Chloride Carbon Dioxide Anion Gap BUN Creatinine Est GFR ( Amer) Est GFR (Non-Af Amer) Random Glucose Calcium Total Bilirubin AST ALT Alkaline Phosphatase Total Protein Albumin Globulin Albumin/Globulin Ratio Urine Color Yellow Urine Clarity Slighty-cloudy Urine pH 6.0 Ur Specific [place] 1.024 Urine Protein 30 Urine Glucose (UA) Neg Urine Ketones Negative Urine Blood Negative Urine Nitrate Negative Urine Bilirubin Negative Urine Urobilinogen 0.2-1.0 Ur Leukocyte Esterase Neg Urine RBC (Auto) 2 Urine Microscopic WBC 1 Ur Squamous Epith Cells 1 Urine Bacteria Rare Urine Opiates Screen Urine Methadone Screen Ur Barbiturates Screen Ur Phencyclidine Scrn Ur Amphetamines Screen U Benzodiazepines Scrn U Oth Cocaine Metabols U Cannabinoids Screen Alcohol, Quantitative
[2017-05-16 12:26] LABS: T4 6.66 ug/dl (5.5-11.0)
[2017-05-16] MEDS: Multivitamin With Minerals Tab PO SCH (18:00)
[2017-05-17] MEDS: Multivitamin With Minerals Tab PO SCH (10:02)
--- NOTE | 2017-05-17 15:35 | PCM.PYCHPN ---
Psychiatric Progress Note - Psychiatric Progress Note Patient seen today, length of contact: pt has been less depressed and less anxious Patient Chief Complaint: pt has been still depressed and anxious with poor insight Mental Status Examination - Homicidal Ideation Homicidal Ideation: No Goal/Treatment Plan - Goal/Treatment Plan Progress Toward Problem(s) and Goals/Treatment Plan: Will start lt on opiate protocol for detox will start pt in neurontin 100 mg tid and zooLoft 25 mg daily for depression.
[2017-05-18] MEDS: Multivitamin With Minerals Tab PO SCH (10:51)
[2017-05-18 16:18] VITALS: BP 124/58; PULSE 92; RESP 20; TEMP 98.2
--- NOTE | 2017-05-18 16:34 | PCM.PYCHPN ---
Psychiatric Progress Note - Psychiatric Progress Note Patient seen today, length of contact: pt has been less depressed and less anxious Patient Chief Complaint: I need help with my drug use Problems Identified/Issues Discussed: PT evaluated with the treatment team , calm cooperative, pt showing insight into his illness , requesting referral to inpatient reahabilitation program discussed with pt the impact of substance use on his current mental status and level of functioning pt reported decreased sleep with early insomnia, reported depressed mood and anhedonia , possible related to opiate withdrawal, denied any current suicidal or homicidal ideation denied perceptual disturbances,or any thoughts of self harm, compliant with treatment DSM 5 Symptoms Update: 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 Decription of patient's judgement and insights: partial insight, poor judgment - Mood Mood: Depressed, Anxious - Affect Affect: Constricted - Speech Speech: Appropriate - Formal Thought Process Formal Thought Process: Circumstantial Psychotic Thoughts and Behaviors: pt denied any current perceptual disturbances, non elicited - Suicidal Ideation Suicidal Ideation: No - Homicidal Ideation Homicidal Ideation: No Goal/Treatment Plan - Goal/Treatment Plan Need for Continued Stay: Severe depression anxiety, Discharge may exacerbated symptoms Progress Toward Problem(s) and Goals/Treatment Plan: continue with zoloft 25mg clonidine 0.1 mg q8 for opiate withdrawal with plan to downtitrate gradually trazodone 100mg qhs, [id number] tid motivational, group and supportive therapy referral to inpatient rehab
[2017-05-19] MEDS: Multivitamin With Minerals Tab PO SCH (10:31)
--- NOTE | 2017-05-19 14:10 | PCM.PYCHDC ---
Mental Status Examination - Mental Status Examination Orientation: Person, Place, Situation Memory: Intact Mood: Neutral Affect: Broad Speech: Appropriate Attention: WNL Concentration: WNL Association: WNL Fund of Knowledge: WNL Formal Thought Process: No Impairment Description of patient's judgement and insight: partial insight, poor judgment Psychotic Thoughts and Behaviors: pt denied any current perceptual disturbances, non elicited Suicidal Ideation: No Current Homicidal Ideation?: No Discharge Summary - Discharge Note Reason for Hospitalization: pt is a 27 yr old male with h/o heroin and cocaine abuse presented to [facility] for feeling and having suicidal thoughts without plan to kill himself.pt is currently not in treatment and lives with son's mother pt has been using heroin daily, also urine toxicology was positive for cocaine and cannabis on admission pt denied any active suicidal or homicidal ideations also denied any active psychotic symptoms Consultations:: List each consultation separately and include: 1. Reason for request. 2. Findings. 3. Follow-up Summary of Hospital Course include:: 1. Description of specific treatment plan utilized for patients during their course of treatmen. 2. Summarize the time- course for resolution of acute symptoms and/or regressed behaviors. 3. Describe issues identified and worked on during hospitalization. 4. Describe medication utilized. 5. Describe medical problems identified and treated. 6. Reassessment of suicide risk Summary of Hospital Course: pt on admission was started on clonidine protocol for opiate withdrawal pt was monitored for symptoms and signs of withdrawal pt was started on zoloft for depression and neurontin for anxiety pt however signed 48 hour notice requesting discharge pt was educated about the risk of possible relapse and overdose on discharge, pt yet declined to continue treatment pt at current mental status denied any suicidal or homicidal ideations denied perceptual disturbances, does not meet criteria for involuntary treatment pt was discharged , follow up plan arranged at [facility] outpatient [facility] program - Diagnosis (1) Depression Status: Acute - Final Diagnosis (DSM 5) Condition upon Discharge: STABLE DSM 5: cocaine induced mood disorder with depressive features cocaine use disorder opiate use disorder cannabis use disorder Disposition: HOME/ ROUTINE Follow-up Treatment Plan: continue with zoloft 25mg clonidine 0.1 mg q8 for opiate withdrawal with plan to downtitrate gradually trazodone 100mg qhs, [id number] tid motivational, group and supportive therapy referral to inpatient rehab Prescriptions/Medication Reconciliation: Gabapentin [Neurontin] 100 mg PO TID 15 Days #45 cap Sertraline [Zoloft] 25 mg PO DAILY 15 Days #15 tab traZODone [Desyrel] 100 mg PO HS 15 Days #15 tab - Antipsychotic Medications Pt discharged on 2 or more routine antipsychotic medications: No
== END 2017-05-19 12:52 | disposition home or self-care (01) | DRG 745 ==
LOC: H.ER 15:26 → H.ERHOLD 18:22 → H.PSYCH 21:00
PROVIDERS: ADMIT Psychiatry & Neurology Psychiatry; ATTEND Psychiatry & Neurology Psychiatry
PROC: HZ52ZZZ Individual Psychotherapy for Substance Abuse Treatment, Cognitive-Behavioral (ICD-10-PCS; principal; 2017-05-15)
PROC: GZHZZZZ Group Psychotherapy (ICD-10-PCS; 2017-05-15)
PROC: GZ58ZZZ Individual Psychotherapy, Cognitive-Behavioral (ICD-10-PCS; 2017-05-15)
DX: F14.24 Cocaine dependence with cocaine-induced mood disorder (principal); F11.23 Opioid dependence with withdrawal; R45.851 Suicidal ideations; F31.9 Bipolar disorder, unspecified; F12.90 Cannabis use, unspecified, uncomplicated; F60.9 Personality disorder, unspecified; G47.00 Insomnia, unspecified; Z91.5 Personal history of self-harm; F17.210 Nicotine dependence, cigarettes, uncomplicated; Z91.018 Allergy to other foods; Z91.013 Allergy to seafood

== ENCOUNTER 2017-07-05 02:28 | Emergency (ER) | payer MEDICAID, OTHER ==
[2017-07-05 02:43] VITALS: BMI 20.9
[2017-07-05 02:49] VITALS: BP 141/95; PULSE 112; RESP 16; TEMP 98.7; O2SAT 100
[2017-07-05] MEDS ORDERED: Tdap Vaccine 0.5 ml Vial (10-64 yrs) IM ONE ×2 (03:03→05:16)
[2017-07-05] MEDS ORDERED: Tetracaine 0.5% Ophth 2 ML BOTTLE ONE (03:18)
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
--- NOTE | 2017-07-05 09:07 | RAD ---
PROCEDURE: Radiographs of the left humerus. HISTORY: trauma COMPARISON: None. FINDINGS: BONES: No acute fracture. SOFT TISSUES: Normal. OTHER FINDINGS: None. IMPRESSION: No demonstrated fracture or dislocation.
== END 2017-07-05 05:30 ==
LOC: H.ER 02:28
DX: S00.83XA Contusion of other part of head, initial encounter (principal); S09.90XA Unspecified injury of head, initial encounter; S30.0XXA Contusion of lower back and pelvis, initial encounter; S50.12XA Contusion of left forearm, initial encounter; Y35.813A Legal intervention involving manhandling, suspect injured, initial encounter; Y92.89 Other specified places as the place of occurrence of the external cause; R91.1 Solitary pulmonary nodule

== ENCOUNTER 2017-08-07 13:53 | Emergency (ER) | payer OTHER ==
[2017-08-07 14:00] VITALS: BMI 21.7
--- NOTE | 2017-08-07 14:50 | ED PDOC ---
HPI: Trauma/Fall - HPI Time Seen by Provider: 08/07/17 14:11 Chief Complaint (Nursing): Weakness/Neurological Deficit Chief Complaint (Provider): left leg pain, fall History Per: Patient History/Exam Limitations: no limitations Additional Complaint(s): 27 year old male presents to the ED complaining of pain and numbness to left foot that started as of waking up this morning. Patient reports he fell yesterday evening and sustained abrasion to left knee. He denies any head injury or LOC. Tetanus is up to date. He states he feels pins and needles throughout his left leg since fall. He is able to walk but has pain when doing so. He denies actual injury to left foot. Patient has numbness to back of left leg as well with no associated bowel or bladder dysfunction and no back pain. PCP: none Past Medical History Reviewed: Historical Data, Nursing Documentation, Vital Signs Vital Signs: Last Vital Signs Temp 99.2 F 08/07/17 13:59 Pulse 138 H 08/07/17 13:59 Resp 20 08/07/17 13:59 BP 118/74 08/07/17 13:59 Pulse Ox 97 08/07/17 14:56 - Medical History PMH: Bipolar Disorder, Depression, Diabetes, Personality Disorder Other PMH: Mass in lung - Surgical History Surgical History: No Surg Hx - Family History Family History: States: No Known Family Hx - Living Arrangements Living Arrangements: With Family - Social History Current smoker - smoking cessation education provided: Yes Alcohol: None 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) - Immunization History Hx Tetanus Toxoid Vaccination: Yes (last booster was one month ago) - Home Medications Home Medications: Ambulatory Orders Medication Instructions Recorded Prednisone 50 mg PO DAILY #2 tablet 04/08/16 Gabapentin [Neurontin] 100 mg PO TID 15 Days #45 cap 05/19/17 Sertraline [Zoloft] 25 mg PO DAILY 15 Days #15 tab 05/19/17 traZODone [Desyrel] 100 mg PO HS 15 Days #15 tab 05/19/17 Cyclobenzaprine [Cyclobenzaprine 10 mg PO TID PRN #20 tab 08/07/17 HCl] Naproxen [Naprosyn] 500 mg PO BID #20 tab 08/07/17 - Allergies Allergies/Adverse Reactions: Allergies Allergy/AdvReac Type Severity Reaction Status Date / Time avocado Allergy RASH Verified 08/07/17 14:03 banana Allergy RASH Verified 08/07/17 14:03 FISH Allergy RASH Verified 08/07/17 14:03 nut - unspecified Allergy ANAPHYLAXIS Verified 08/07/17 14:03 Review of Systems ROS Statement: Except As Marked, All Systems Reviewed And Found Negative Constitutional: Negative for: Fever, Weakness Genitourinary Male: Negative for: Dysuria, Incontinence Musculoskeletal: Positive for: Other (pain and numbness left leg, abrasion to left knee) Physical Exam - Reviewed Nursing Documentation Reviewed: Yes Vital Signs Reviewed: Yes - Physical Exam Appears: Positive for: Well, Non-toxic, No Acute Distress Skin: Positive for: Normal Color. Negative for: Rash Eye Exam: Positive for: Normal appearance Neck: Positive for: Normal Cardiovascular/Chest: Positive for: Regular Rate, Rhythm Respiratory: Positive for: Normal Breath Sounds. Negative for: Respiratory Distress Extremity: Positive for: Normal ROM, Other (Abrasion to left knee with full rom of left knee, normal sensation noted to left foot, no foot drop) Neurologic/Psych: Positive for: Alert, telemarketing sales representative II-XII (grossly intact), Oriented. Negative for: Motor/Sensory Deficits - ECG O2 Sat by Pulse Oximetry: 97 (RA) Pulse Ox Interpretation: Normal Medical Decision Making Medical Decision Making: Initial Impression: 27 year old male with pain and numbness to left leg Initial Plan: Abrasion cleansed with saline and betadine, bacitracin and bandage applied, N/V intact s/p placement. Patient declined x-rays. Rx given for naprosyn and flexeril. Patient was referred to clinic for follow up. Scribe Attestation: Documented by Erik Valle acting as a scribe for Miroslava BLACKWELL. Provider Scribe Attestation: All medical record entries made by the Scribe were at my direction and personally dictated by me. I have reviewed the chart and agree that the record accurately reflects my personal performance of the history, physical exam, medical decision making, and the department course for this patient. I have also personally directed, reviewed, and agree with the discharge instructions and disposition. Disposition - Clinical Impression Clinical Impression: Sciatica, Knee abrasion - Patient ED Disposition Is Patient to be Admitted: No Counseled Patient/Family Regarding: Diagnosis, Need For Followup, Rx Given, Smoking Cessation - Disposition Referrals: [facility] [Outside] Disposition: Routine/Home Disposition Time: 14:58 Condition: STABLE Additional Instructions: Take rx meds as directed. Elevate and rest affected leg. Follow up with clinic or with orthopedist for any persistent symptoms. Prescriptions: Cyclobenzaprine [Cyclobenzaprine HCl] 10 mg PO TID PRN #20 tab PRN Reason: Muscle Spasm Naproxen [Naprosyn] 500 mg PO BID #20 tab Instructions: Sciatica (DC), Skin Abrasions, Sciatica Exercises Forms: [facility] (Puerto Rican)
[2017-08-07 16:11] VITALS: BP 125/76; PULSE 116; RESP 18; TEMP 98; O2SAT 100
== END 2017-08-07 15:30 | disposition home or self-care (01) ==
LOC: H.ER 13:53
DX: S80.212A Abrasion, left knee, initial encounter (principal); W19.XXXA Unspecified fall, initial encounter; Y92.89 Other specified places as the place of occurrence of the external cause; M54.32 Sciatica, left side; E11.9 Type 2 diabetes mellitus without complications; F17.200 Nicotine dependence, unspecified, uncomplicated; F31.9 Bipolar disorder, unspecified